=== PATIENT | male | born 1990 | race African-American/Black ===

== ENCOUNTER 2017-05-09 19:29 | Emergency (ER) | payer OTHER ==
[2017-05-09] MEDS ORDERED: 0.9 % SODIUM CHLORIDE 10 ML DISP.SYRIN. IV (19:45)
[2017-05-09] MEDS: KETOROLAC 30 MG/ML INJ. IV (19:56)
[2017-05-09] MEDS: IV NORMAL SALINE 1000ML BAG 1,000 ML IV ×2 (19:56→21:30)
[2017-05-09] MEDS: MORPHINE SULFATE 4 MG/ML DISP.SYRIN. IV/SQ ×2 (19:57→21:02)
[2017-05-09 19:58] LABS: ADD MAN DIFF? NO
[2017-05-09 20:00] LABS: BASO % 0 % (0-3); EOS % 0 % (0-3); HEMATOCRIT 46.5 % (39.0-53.0); HEMOGLOBIN 16.1 g/dL (13.0-17.5); LYMPH # 1.9 x10^3/uL (1.0-4.8); LYMPH % 18 % (24-48); MEAN CORPUSCULAR HEMOGLOBIN 30 pg (25-35); MEAN CORPUSCULAR HGB CONC 35 g/dL (31-37); MEAN CORPUSCULAR VOLUME 87 fL (79-100); MONO # 0.7 x10^3/uL (0.0-1.1); MONO % 6 % (0-9); NEUT # 8.1 x10^3uL (1.8-7.7); NEUT % 76 % (31-73); PLATELET COUNT 227 x10^3/uL (140-400); RED BLOOD COUNT 5.34 x10^6/uL (4.30-5.70); RED CELL DISTRIBUTION WIDTH 13.9 % (11.5-14.5); WHITE BLOOD COUNT 10.7 x10^3/uL (4.0-11.0)
[2017-05-09] MEDS: ONDANSETRON PF 4 MG/2 ML VIAL. IV ×2 (20:00→21:02)
[2017-05-09 20:12] LABS: ANION GAP 12 (6-14); BLOOD UREA NITROGEN 19 mg/dL (8-26); CALCIUM 9.7 mg/dL (8.5-10.1); CARBON DIOXIDE 25 mmol/L (21-32); CHLORIDE 101 mmol/L (98-107); CREATININE 1.6 mg/dL (0.7-1.3); GFR 64.6; GLUCOSE 131 mg/dL (70-99); POTASSIUM 3.4 mmol/L (3.5-5.1); SODIUM 138 mmol/L (136-145)
[2017-05-09 20:15] LABS: ALBUMIN 3.9 g/dL (3.4-5.0); ALK PHOS 73 U/L (46-116); ALT (SGPT) 27 U/L (16-63); AST (SGOT) 35 U/L (15-37); DIRECT BILIRUBIN 0.1 mg/dL (0.0-0.2); LIPASE 85 U/L (73-393); TOTAL BILIRUBIN 0.5 mg/dL (0.2-1.0); TOTAL PROTEIN 8.1 g/dL (6.4-8.2)
[2017-05-09 21:13] LABS: BILIRUBIN,URINE NEGATIVE (NEG); CLARITY,URINE CLEAR; COLOR,URINE YELLOW; GLUCOSE,URINE NEGATIVE (NEG); NITRITE,URINE NEGATIVE (NEG); PH,URINE 5.5; PROTEIN,URINE 100 mg/dL (NEG-TRACE); UROBILINOGEN,URINE 0.2 mg/dL (0.2 mg/dL)
[2017-05-09 21:23] LABS: BACTERIA,URINE 0 /HPF (0-FEW); RBC,URINE RARE /HPF (0-2); WBC,URINE OCC /HPF (0-4)
[2017-05-09] MEDS: SUCRALFATE 1 GM/10 ML ORAL.SUSP. PEG (22:36)
[2017-05-09] MEDS: HYOSCYAMINE 0.125 MG TAB.RAPDIS PO (22:37)
== END 2017-05-09 22:48 | disposition home or self-care (01) ==
LOC: ER 19:29
DX: R11.2 Nausea with vomiting, unspecified (principal); R10.31 Right lower quadrant pain; F12.10 Cannabis abuse, uncomplicated
CPT/HCPCS: 36415; 74176; 80048; 80076; 81001; 83690; 85025; 96361; 96374; 96375; 96376; 99285-25; J1885; J2270; J2405; J7030

== ENCOUNTER 2017-06-06 05:03 | Emergency (ER) | payer OTHER | END 2017-06-06 06:00 | disposition home or self-care (01) | LOC: ER 05:03 | DX: T81.89XA Other complications of procedures, not elsewhere classified, initial encounter (principal); Y83.8 Other surgical procedures as the cause of abnormal reaction of the patient, or of later complication, without mention of misadventure at the time of the procedure; Y92.89 Other specified places as the place of occurrence of the external cause | CPT/HCPCS: 99284 ==

== ENCOUNTER → 2017-06-06 | Outpatient (CLI) | payer OTHER | END | disposition home or self-care (01) | LOC: PMGWOUND 12:15 | DX: T81.89XD Other complications of procedures, not elsewhere classified, subsequent encounter (principal); M62.262 Nontraumatic ischemic infarction of muscle, left lower leg; I74.3 Embolism and thrombosis of arteries of the lower extremities; I50.9 Heart failure, unspecified; F12.90 Cannabis use, unspecified, uncomplicated; Z86.718 Personal history of other venous thrombosis and embolism; Y83.8 Other surgical procedures as the cause of abnormal reaction of the patient, or of later complication, without mention of misadventure at the time of the procedure | CPT/HCPCS: 97606 ==

== ENCOUNTER → 2017-06-18 | Outpatient (CLI) | payer OTHER | END | disposition home or self-care (01) | LOC: PMGWOUND 12:08 | DX: T81.89XD Other complications of procedures, not elsewhere classified, subsequent encounter (principal); I74.3 Embolism and thrombosis of arteries of the lower extremities; M62.262 Nontraumatic ischemic infarction of muscle, left lower leg; I50.9 Heart failure, unspecified; F12.10 Cannabis abuse, uncomplicated; Z86.718 Personal history of other venous thrombosis and embolism; Y83.8 Other surgical procedures as the cause of abnormal reaction of the patient, or of later complication, without mention of misadventure at the time of the procedure | CPT/HCPCS: 97606 ==